=== PATIENT | male | born 1995 | race Caucasian/White ===

== ENCOUNTER 2017-05-05 01:09 | Emergency (ER) | payer OTHER ==
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
[2017-05-05 03:10] VITALS: BP 134/88; PULSE 97; RESP 20; TEMP 97.9; O2SAT 95
== END 2017-05-05 03:11 | disposition home or self-care (01) ==
PROC: 0HQ0XZZ Repair Scalp Skin, External Approach (ICD-10-PCS; principal; 2017-05-05)
DX: S01.01XA Laceration without foreign body of scalp, initial encounter (principal); F10.129 Alcohol abuse with intoxication, unspecified; J32.9 Chronic sinusitis, unspecified; J45.909 Unspecified asthma, uncomplicated; W14.XXXA Fall from tree, initial encounter; Y99.8 Other external cause status; Y93.84 Activity, sleeping